=== PATIENT | male | born 1955 ===

== ENCOUNTER 2021-12-05 06:00 | Outpatient (RCR) | payer MEDICARE, SELFPAY | END 2021-12-10 23:59 | disposition home or self-care (01) | LOC: TPT 06:00 | PROVIDERS: Referring Provider Orthopaedic Surgery; Visit Provider Orthopaedic Surgery | DX: Z47.1 Aftercare following joint replacement surgery (principal); Z96.641 Presence of right artificial hip joint | CPT/HCPCS: 97110; 97162 ==

== ENCOUNTER 2021-12-11 06:00 | Outpatient (RCR) | payer MEDICARE, SELFPAY | END 2022-01-07 23:59 | disposition home or self-care (01) | LOC: TPT 06:00 | PROVIDERS: Referring Provider Orthopaedic Surgery; Visit Provider Orthopaedic Surgery | DX: Z47.1 Aftercare following joint replacement surgery (principal); Z96.641 Presence of right artificial hip joint | CPT/HCPCS: 97110 ==

== ENCOUNTER 2022-01-08 06:00 | Outpatient (RCR) | payer MEDICARE, SELFPAY | END 2022-01-30 23:59 | disposition home or self-care (01) | LOC: TPT 06:00 | PROVIDERS: Referring Provider Orthopaedic Surgery; Visit Provider Orthopaedic Surgery | DX: Z47.1 Aftercare following joint replacement surgery (principal); Z96.641 Presence of right artificial hip joint | CPT/HCPCS: 97110 ==